=== PATIENT | female | born 1995 | race Caucasian/White ===

== ENCOUNTER 2020-03-24 00:42 | Outpatient (CLI) | payer OTHER, SELFPAY ==
[2020-03-24 19:14] LABS: SARS-CoV-2 RNA PCR Negative
== END 2020-03-24 00:43 | disposition home or self-care (01) ==
LOC: ANHCOVIDDT 00:42
PROVIDERS: PCP Family Medicine; Visit Provider Student in an Organized Health Care Education/Training Program
DX: Z01.818 Encounter for other preprocedural examination (principal); Z20.828 Contact with and (suspected) exposure to other viral communicable diseases
CPT/HCPCS: 87635; C9803; U0003

== ENCOUNTER 2020-03-28 00:47 | Day surgery (SDC) | payer OTHER, SELFPAY ==
[2020-03-20 12:38] VITALS: BMI 18.7
--- NOTE | 2020-03-27 16:11 | PM.IMHP ---
H&P: HPI History of Present Illness Date/Time: 03/27/20 16:11 Patient is a 24 year old woman with a long history of severe vaginal discomfort, precluding the inability to insert tampons or engage in sexual activity. She has been unable to tolerate speculum exams in the office and has declined bimanual exams due to the discomfort. 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 After discussion, the patient was offered an examination under anesthesia to fully evaluate the vulvar and vaginal area as well as surgical revision of hymen. Decision was made to proceed with procedure. Patient reports feeling well today without complaints. Chief complaint: Hymenal Remnants Narrative: Kalli Arnold is a 24 year old female Review of Systems Review of Systems: All systems reviewed & are unremarkable except as noted in HPI and below Constitutional: Constitutional: Reports as per HPI, Reports no additional constitutional complaints, Denies chills, Denies fever(s), Denies headache(s) and Denies night sweats Eyes: Eyes: Reports as per HPI and Reports no additional eye complaints ENT: Reports system reviewed and no additional complaints, except as documented, Reports as per HPI, Reports Normal hearing present and Denies headache(s) Cardiovascular: Cardiovascular: Reports as per HPI, Reports no additional cardiovascular complaints, Denies chest pain and Denies dyspnea Respiratory: Respiratory: Reports as per HPI, Reports no additional respiratory complaints, Denies cough and Denies dyspnea Gastrointestinal: Gastrointestinal: Reports as per HPI, Reports no additional gastrointestinal complaints, Denies abdominal pain, Denies change in bowel habits, Denies change in stool character, Denies nausea and Denies vomiting Genitourinary: Genitourinary: Reports no additional female genitourinary complaints, Reports as per HPI, Denies abnormal vaginal bleeding, Denies genital lesions, Denies hot flashes, Denies dyspareunia, Denies pelvic pain, Denies sexual dysfunction, Denies urinary incontinence, Denies vaginal discharge, Denies vaginal dryness and Denies vaginal odor Musculoskeletal: Musculoskeletal: Reports no additional musculoskeletal complaints and Reports as per HPI Integumentary/Breasts: Skin/Breast: Reports system reviewed and no additional complaints, except as docu, Reports as per HPI, Denies breast pain and Denies nipple discharge Neurologic: Reports system reviewed and no additional complaints, except as documented, Reports as per HPI, Reports Normal hearing present and Denies headache(s) Psychiatric: Psychiatric: Reports no additional psychiatric complaints, Reports as per HPI, Denies anxiety and Denies depression Endocrine: Endocrine: Reports no additional endocrine complaints and Reports as per HPI Hematologic/Lymphatic: Hematologic/Lymphatic: Reports no additional hematologic/lymphatic complaints and Reports as per HPI Allergic/Immunologic: Allergic/Immunologic: Reports no additional allergic/immunologic complaints and Reports as per HPI PMFSH Past Medical History Medical History Acid reflux ADHD Anxiety Asthma Eczema H/O borderline personality disorder Migraine Vocal cord dysfunction Surgical History Surgical History History of colonoscopy History of endoscopy History of tonsillectomy and adenoidectomy Family History Family History Grandparent Diabetes mellitus Mother Family history of hypercholesterolemia Other Asthma Family history of allergic disorder Family history of eczema Social History Social History Smoking status: Never smoker Second hand tobacco smoke e
[2020-03-28 10:35] VITALS: BP 107/78; PULSE 120; RESP 20; TEMP 37; O2SAT 100
--- NOTE | 2020-03-28 11:12 | WPDANESEPPF ---
Anes - Initial Pre Proc Eval Procedure: Operation Date: 03/28/20 13:00 Proposed Procedures p Pelvic Exam Under Anesthesia And Excision of Hymen,With Pap Smear - Rose Mendez MD Date/Time: 03/28/20 11:12 Surgeon: Rose Mendez MD Pre Op Diagnosis: Hymenal Remnants Patient Data Age: 24 Gender: F Height: 5 ft 3 in Weight: 50.4 kg Last Vital Signs Temp 98.6 F 03/28/20 10:35 Pulse 120 H 03/28/20 10:35 Resp 20 03/28/20 10:35 BP 107/78 03/28/20 10:35 Pulse Ox 100 03/28/20 10:35 Allergies Allergy/AdvReac Type Severity Reaction Status Date / Time No Known Allergies Allergy Verified 03/28/20 10:41 Home Medications Medication Instructions Recorded Confirmed Type albuterol sulfate 2.5 mg INHALATION Q4H PRN 04/11/19 03/28/20 History albuterol sulfate [ProAir HFA] 1 puff INHALATION QID PRN 04/11/19 03/28/20 History amitriptyline 75 mg PO HS 04/11/19 03/28/20 History benzonatate 200 mg PO BID PRN 04/11/19 03/28/20 History calcium polycarbophil [FiberCon] 1,250 mg PO HS 04/11/19 03/28/20 History ipratropium-albuterol [Combivent 1 puff INHALATION Q4H PRN 04/11/19 03/28/20 History Respimat] ketorolac 10 mg PO Q6H PRN 04/11/19 03/28/20 History lansoprazole 30 mg PO DAILY PRN 04/11/19 03/28/20 History rabeprazole 20 mg PO HS 04/11/19 03/28/20 History rizatriptan 10 mg PO ONCE PRN 04/11/19 03/28/20 History topiramate 100 mg PO HS 04/11/19 03/28/20 History galcanezumab-gnlm [Emgality Pen] 120 mg SUBCUT MONTHLY 04/15/19 03/28/20 History docusate sodium 100 mg capsule 100 mg PO HS 05/17/19 03/28/20 History polyethylene glycol 3350 17 17 gm PO DAILY PRN 05/17/19 03/28/20 History gram/dose oral powder drospirenone (contraceptive) 4 mg 4 mg PO DAILY 24 Days #3 packet 08/22/19 03/28/20 Rx (28) tablet aripiprazole 2 mg PO HS 03/20/20 03/28/20 History beclomethasone dipropionate [Qvar] 160 mcg INHALATION BID 03/20/20 03/28/20 History dextroamphetamine-amphetamine 5 mg PO BID 03/20/20 03/28/20 History multivit with min-folic acid 2 tablet PO DAILY 03/20/20 03/28/20 History [Adult Multivitamin Gummies] sertraline 150 mg PO HS 03/20/20 03/28/20 History Patient hx anesthesia problems: none Family hx anesthesia problems: none [facility] Past Medical History Medical History Acid reflux ADHD Anxiety Asthma Eczema H/O borderline personality disorder Migraine Vocal cord dysfunction Surgical History Surgical History History of colonoscopy History of endoscopy History of tonsillectomy and adenoidectomy Family History Family History Grandparent Diabetes mellitus Mother Family history of hypercholesterolemia Other Asthma Family history of allergic disorder Family history of eczema Social History Social History Smoking status: Never smoker Second hand tobacco smoke exposure: No Alcohol intake: current Alcohol use details: 1 GLASS WHISKEY/MONTH Substance use: former Substance use type: marijuana Other substance usage details: CBD OIL Last use: 04/2019 Living arrangements: with roommate(s) Spiritual care concerns: No Anes - Eval Final PreProcedure Day of Procedure 03/28/20 11:12 Patient weight: normal Heart: regular rate and rhythm Lungs: clear to auscultation Airway: Mallampati scale class II Neurological: alert and oriented Last oral intake: >/= 8 hours ASA classification: II Emergent: no Anesthetic plan: proceed Anesthesia type and monitoring: general GIVS and standard monitoring Informed Consent: The patient's anesthetic plan and its attendant risks and benefits were discussed with the patient/family/POA. Questions were solicited and answers provided to the satisfaction of the patient/family/POA.
[2020-03-28] MEDS: ACETAMINOPHEN 500 MG TABLET 1000 MG PO (11:15)
[2020-03-28] MEDS: LACTATED RINGERS 1,000 ML 30 ML IV CONT ×2 (11:20→14:19)
--- NOTE | 2020-03-28 12:57 | WPDHPUPDATE1 ---
History and Physical Update Update Date/Time: 03/28/20 12:57 History and Physical has been reviewed, including an updated exam of the patient. There are NO changes in the patient's condition. Risks, benefits, and alternatives have been discussed and questions answered. Patient agrees to proceed with procedure.
[2020-03-28] MEDS: KETOROLAC 30 MG/ML VIAL (*BKC) 15 MG IV PUSH (13:54)
[2020-03-28 14:06] VITALS: BP 83/41; PULSE 81; RESP 8; O2SAT 100
--- NOTE | 2020-03-28 14:08 | P.OP_ITS ---
Procedure Note - Detailed Date of procedure: 03/28/20 Pre-op diagnosis: Hymenal Remnants Post-op diagnosis: same Procedure performed: Examination under anesthesia, pap smear, hymenectomy Description of procedure: The patient was taken to the operating room where she self transferred to the operating room table. Patient was placed in dorsal supine position. Anesthesia was administered and found be adequate. Patient was repositioned in dorsal lithotomy position with the use of Kali stirrups. An examination anesthesia was performed. 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 A pediatric speculum was inserted into the vagina. During insertion of the speculum, the hymen noticeably stretched causing a small inferior laceration with minimal bleeding. The cervix was well visualized and a Pap smear specimen was collected. The patient was then prepped and draped in usual sterile fashion. With the use of a #15 blade scalpel, the inferior portion of the hymenal remnant was completely excised in a semi-lunar fashion. The mucosal edges were reapproximated with single interrupted sutures using 4-0 Vicryl. Excellent hemostasis was noted. The portion of the excised remnant was handed off the field to be sent to pathology for analysis. The superior portion of the remaining hymenal remnant containing the 2nd cribiform opening to the vagina (which created a small loop) was identified. A red rubber catheter was inserted into the bladder. 75 cc of yellow urine was obtained. The catheter was left in place to ensure no damage to the urethra. A large cotton swab was placed through the looped portion of the hymenal remnant. The intervening segment of tissue was excised with the scalpel. The edges of this portion of the hymen were also reapproximated with 4-0 Vicryl in a short running fashion. Excellent hemostasis was noted. The procedure was deemed complete. 6 cc of 1% lidocaine was injected beneath all excision sites for enhanced postoperative pain control. The patient was cleansed and dried. A small amount of lidocaine jelly as well as bacitracin ointment was applied to the area. The patient was taken out dorsal lithotomy position and awakened from anesthesia without diffi culty. She was transferred to recovery room in stable condition. All sponge, lap, and instrument counts were correct at the end of the procedure. Anesthesia: MAC Surgeon: Rose Mendez MD Estimated blood loss (mL): 15 IV fluids (mL): 900 Urine output (mL): 75 Drains: No Packing: No Pathology: yes (hymenal remnants) Complications: No immediate complications Condition: stable Disposition: floor
[2020-03-28 14:25] VITALS: BP 110/68; PULSE 78; RESP 12; O2SAT 100
[2020-03-28 14:55] VITALS: BP 105/66; PULSE 78; RESP 16; O2SAT 100
[2020-03-28 15:24] VITALS: BP 96/68; PULSE 88; RESP 16
== END 2020-03-28 15:30 | disposition home or self-care (01) ==
PROVIDERS: PCP Family Medicine; Visit Provider Student in an Organized Health Care Education/Training Program
PROC: 0U5B8ZZ Destruction of Endometrium, Via Natural or Artificial Opening Endoscopic (ICD-10-PCS; CPT 58563; principal; 2020-03-28 13:00)
DX: Q52.4 Other congenital malformations of vagina (principal); F90.9 Attention-deficit hyperactivity disorder, unspecified type; K21.9 Gastro-esophageal reflux disease without esophagitis; F41.9 Anxiety disorder, unspecified; J45.909 Unspecified asthma, uncomplicated; L30.9 Dermatitis, unspecified
CPT/HCPCS: 56700; 88305; 88342; A9270; J1885; J2250; J2370; J2405; J2704; J3010; J7120

== ENCOUNTER 2020-07-10 08:21 | Outpatient (CLI) | payer OTHER, SELFPAY ==
--- NOTE | 2020-07-10 12:12 | WPDNEUROLOGY ---
Neurology EEG Report General Information Date of Study: 07/10/20 TEST eeg DIAGNOSIS headaches possibly migraines CONDITION OF RECORDING awake drowsy and sleep EEG NUMBER [id number] CLINICAL HISTORY patient reported for about 6 months to a year she is having episodes of losing time, becomes confused and forgetting at work. EEG DESCRIPTION Basic resting occipital frequency consists of large amount of well-organized low to medium voltage 8 to 10 hertz per second alpha admixed with low-voltage 15 to 18 hertz per second beta. Bilateral symmetrical sleep activity seen during sleep with symmetrical sleep spindles.hyperventilation not done. Non paroxysmal. Nonfocal. Nonlateralizing. Photic stimulation produced normal driving IMPRESSION normal record
== END 2020-07-10 08:22 | disposition home or self-care (01) ==
PROVIDERS: PCP Family Medicine; Visit Provider Psychiatry & Neurology Neurology
DX: G43.909 Migraine, unspecified, not intractable, without status migrainosus (principal)
CPT/HCPCS: 95816

== ENCOUNTER 2021-02-27 09:56 | Emergency (ER) | payer OTHER, SELFPAY ==
--- NOTE | ~2021-02-27 | CT_ITS ---
EXAMINATION: CT abdomen pelvis wo con DATE: 02/27/2021 11:02 INDICATION: Back pain, painful urination TECHNIQUE: Computed tomography (CT) of the abdomen and pelvis was performed without intravenous contr ast. The dose-length product (DLP) was 195.82 mGy-cm. Automated exposure control and iterative recons truction technique were employed. COMPARISON: None FINDINGS: The lung bases are clear. The heart size is normal. The liver, spleen, pancreas, gallbladde r, and adrenal glands are normal. There are punctate nonobstructing bilateral kidney stones. No stone s are present in the ureters or bladder. There is no hydronephrosis or hydroureter. No pathologically enlarged abdominal or pelvic lymph nodes are identified. There is no free intraperitoneal gas or tolu dence of bowel obstruction. A moderate volume of colonic stool is present. The appendix is normal. IMPRESSION: 1. Bilateral nonobstructing nephrolithiasis. Reviewed, dictated and finalized at location B. 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
--- NOTE | 2021-02-27 10:10 | ED.FEMALEGU ---
HPI - Female Genitourinary General Chief complaint: Urogenital-Female <Rebekah Harley PA-C - Last Filed: 02/27/21 11:40> Stated complaint: blood in urine, back pain <KATHE Diaz Last Filed: 02/27/21 11:40> Time Seen by Provider: 02/27/21 09:59 <KATHE Diaz Last Filed: 02/27/21 11:40> Source: patient <Rebekah Harley PA-C - Last Filed: 02/27/21 11:40> Mode of arrival: ambulatory <KATHE Diaz Last Filed: 02/27/21 11:40> Limitations: no limitations <Rebekah Harley PA-C - Last Filed: 02/27/21 11:40> History of Present Illness HPI Narrative: This is a 25-year-old female that presents to the emergency department for hematuria noted today. Reports she started to have some left-sided flank pain yesterday. The pain has been constant in nature. Intermittently is more sharp. Does also report some nausea and lower abdominal discomfort. Denies fever, vomiting, or dysuria. <Rebekah Harley PA-C - Last Filed: 02/27/21 11:40> Related Data Home medications: Home Medications Medication Instructions Recorded Confirmed Combivent Respimat 1 puff INHALATION Q4H PRN 04/11/19 02/26/21 albuterol sulfate 2.5 mg INHALATION Q4H PRN 04/11/19 02/26/21 albuterol sulfate [ProAir HFA] 1 puff INHALATION QID PRN 04/11/19 02/26/21 lansoprazole 30 mg PO DAILY PRN 04/11/19 02/26/21 rabeprazole 20 mg PO HS 04/11/19 02/26/21 rizatriptan 10 mg PO ONCE PRN 04/11/19 02/26/21 polyethylene glycol 3350 17 17 gm PO DAILY PRN 05/17/19 02/26/21 gram/dose oral powder Adult Multivitamin Gummies 2 tablet PO DAILY 03/20/20 02/26/21 beclomethasone dipropionate 160 mcg INHALATION BID 03/20/20 02/26/21 amitriptyline 75 mg tablet 75 mg PO DAILY tablet 02/05/21 02/26/21 cariprazine 1.5 mg capsule 1.5 mg PO DAILY 02/05/21 02/26/21 cholecalciferol (vitamin D3) 50 50 mcg PO DAILY cap 02/26/21 02/26/21 mcg (2,000 unit) capsule sertraline 100 mg tablet 200 mg PO DAILY tablet 02/26/21 02/26/21 <Rebekah Harley PA-C - Last Filed: 02/27/21 11:40> Allergies/Adverse reactions: Allergies Allergy/AdvReac Type Severity Reaction Status Date / Time No Known Allergies Allergy Verified 02/26/21 16:04 <Rebekah Harley PA-C - Last Filed: 02/27/21 11:40> Review of Systems Review of Systems: CONSTITUTIONAL: Denies fever GASTROINTESTINAL: Reports abdominal pain, nausea. Denies vomiting, or diarrhea. GENITOURINARY: Reports hematuria. 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
[2021-02-27 10:31] LABS: Basophils Percent Auto 0.4 % (0.2-1.2); Eosinophils Absolute Auto 0.1 K/mm3 (0-0.3); Eosinophils Percent Auto 0.9 % (0-4.4); Hematocrit 37.8 % (37.0-47.0); Hemoglobin 12.8 g/dL (12.0-15.0); Immature Granulocyte Absolute 0.03 K/mm3 (0.00-0.031); Immature Granulocyte Percent A 0.3 % (0-0.5); Lymphocytes Absolute Auto 1.78 K/mm3 (0.9-3.2); Lymphocytes Percent Auto 19.9 % (18.3-44.2); Mean Corpuscular HGB Conc 33.9 g/dl (32-36); Mean Corpuscular Hemoglobin 29.5 pg (26-34); Mean Corpuscular Volume 87.1 fl (80-100); Mean Platelet Volume 8.7 fl (7.4-10.4); Monocytes Absolute Auto 0.9 K/mm3 (0.1-0.6); Monocytes Percent Auto 9.9 % (2.6-8.5); Neutrophils Absolute Auto 6.1 K/mm3 (1.3-6.7); Neutrophils Percent Auto 68.6 % (45.5-73.1); Platelet Count Result 251 k/mm3 (150-375); Red Blood Count 4.34 M/mm3 (4.2-5.4)
[2021-02-27 10:35] VITALS: BP 103/76; PULSE 93; RESP 16; TEMP 36.6; O2SAT 100
[2021-02-27 10:42] LABS: Alanine Aminotransferase 15 U/L (4-35); Alkaline Phosphatase 74 U/L (38-126); Anion Gap 12 mmol/L (8-16); Aspartate Amino Transferase 27 U/L (14-36); Bilirubin,Total 0.4 mg/dL (0.2-1.3); Blood Urea Nitrogen 17 mg/dL (7-17); Calcium 9.4 mg/dL (8.4-10.2); Carbon Dioxide 23 mmol/L (22-30); Chloride 104 mmol/L (98-107); Estimated CRCL calculation 74 ml/min; Estimated Glomerular Filt Rate > 60; Glucose 87 mg/dL (65-110); Potassium 4.3 mmol/L (3.4-5.0); Sodium 139 mmol/L (137-145)
[2021-02-27 10:54] LABS: Add Urine Microscopic? YES; Appearance Urine Cloudy (Clear); Bilirubin Urine Negative (Negative); Blood Urine 3+ (Negative); Color Urine Red (Yellow); Glucose Urine UA Negative (Negative); Ketones Urine Negative (Negative); Leukocyte Esterase Ur 3+ LEU/UL (Negative); Mucus Urine Rare /lpf; Nitrate Urine Negative (Negative); Protein Urine 2+ mg/dL (Negative); RBC Urine >75 /hpf (0-2); Specific Grav Ur 1.012 (1.001-1.035); Squamous Epithelial Cell Urine Many /hpf (Few); Urobilinogen Urine Negative mg/dL (<2.0); WBC Urine 31-50 /hpf
[2021-02-27] MEDS: SODIUM CHLORIDE 0.9% IV 1,000 ML 999 ML IV CONT (11:22)
[2021-02-27] MEDS: MORPHINE SULFATE (*CRX) 2 MG/ML INJ IV PUSH (11:23)
[2021-02-27] MEDS: ONDANSETRON INJ 4 MG/2 ML VIAL IV PUSH (11:23)
[2021-02-27 12:54] VITALS: BP 104/78; PULSE 85; RESP 16; O2SAT 100
== END 2021-02-27 12:55 | disposition home or self-care (01) ==
PROVIDERS: Physician Assistant; Emergency Provider Emergency Medicine; PCP Family Medicine
DX: N12 Tubulo-interstitial nephritis, not specified as acute or chronic (principal); K21.9 Gastro-esophageal reflux disease without esophagitis; F41.9 Anxiety disorder, unspecified; J45.909 Unspecified asthma, uncomplicated; F32.9 Major depressive disorder, single episode, unspecified
CPT/HCPCS: 36415; 74176; 80053; 81001; 81025; 85025; 87077; 87086; 87088; 96365; 96366; 96375; 99284; J0131; J2270; J2405; J7030

== ENCOUNTER 2021-03-04 06:28 | Emergency (ER) | payer OTHER, SELFPAY ==
[2021-03-04] VITALS (14 sets, daily range): BP systolic 91–123; BP diastolic 57–75; PULSE 123–133; RESP 17–25; TEMP 36.8; O2SAT 97–99
--- NOTE | 2021-03-04 06:53 | ECG_ITS ---
Measurements Intervals [place] Rate: 127 P: 36 [place]: 150 QRS: 49 QRSD: 113 T: 22 QT: 330 QTc: 480 Interpretive Statements SINUS TACHYCARDIA INTRAVENTRICULAR CONDUCTION DELAY BORDERLINE ST-T WAVE ABNORMALITY- ANTEROLAT/INF LEADS BASELINE WANDER- V3 ABNORMAL ECG Electronically Signed On 03-04-2021 8:47:41 DIRECTOR OF SAFETY AND SECURITY by Nico Clay D.O.
--- NOTE | 2021-03-04 07:19 | PC.NURSE ---
Report received from REY Vargas. Initial contact with patient. Awaiting EDP assessment. Denies needs at present.
--- NOTE | 2021-03-04 07:29 | ED.HA ---
HPI - Headache General Chief Complaint: Headache Stated Complaint: migraine h/a Time Seen by Provider: 03/04/21 07:20 History of Present Illness HPI Narrative: Patient presents with migraine headache similar to her previous migraines started last night, throbbing pain behind the eyes and left forehead, she denies any new changes compared to the previous one. Usually gets better on Toradol. And IV fluid. Patient denies any fever, chills, nausea, vomiting, chest pain, shortness of breath Related Data Home Medications Medication Instructions Recorded Confirmed Combivent Respimat 1 puff INHALATION Q4H PRN 04/11/19 02/26/21 albuterol sulfate 2.5 mg INHALATION Q4H PRN 04/11/19 02/26/21 albuterol sulfate [ProAir HFA] 1 puff INHALATION QID PRN 04/11/19 02/26/21 lansoprazole 30 mg PO DAILY PRN 04/11/19 02/26/21 rabeprazole 20 mg PO HS 04/11/19 02/26/21 rizatriptan 10 mg PO ONCE PRN 04/11/19 02/26/21 polyethylene glycol 3350 17 17 gm PO DAILY PRN 05/17/19 02/26/21 gram/dose oral powder Adult Multivitamin Gummies 2 tablet PO DAILY 03/20/20 02/26/21 beclomethasone dipropionate 160 mcg INHALATION BID 03/20/20 02/26/21 amitriptyline 75 mg tablet 75 mg PO DAILY tablet 02/05/21 02/26/21 cariprazine 1.5 mg capsule 1.5 mg PO DAILY 02/05/21 02/26/21 cholecalciferol (vitamin D3) 50 50 mcg PO DAILY cap 02/26/21 02/26/21 mcg (2,000 unit) capsule sertraline 100 mg tablet 200 mg PO DAILY tablet 02/26/21 02/26/21 Allergies Allergy/AdvReac Type Severity Reaction Status Date / Time No Known Allergies Allergy Verified 03/04/21 06:47 Review of Systems Review of Systems: CONSTITUTIONAL: Denies fever, chills, or sweats. EYES: Denies visual changes, redness, or discharge. ENT: Denies rhinorrhea, congestion, sore throat, or otalgia. CARDIOVASCULAR: Denies chest pain, palpitations, or edema. RESPIRATORY: Denies cough or dyspnea. GASTROINTESTINAL: Denies abdominal pain, nausea, vomiting, or diarrhea. GENITOURINARY: Denies dysuria or hematuria. SKIN: Denies rash or itching. MUSCULOSKELETAL: Denies back pain, joint pain, or myalgia. NEUROLOGIC: Denies headache, numbness, or weakness. PSYCHIATRIC: Denies anxiety or depression. 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 History of tonsillectomy and adenoidectomy (~2000) Family History Family History Grandparent Diabetes mellitus Mother Family history of hypercholesterolemia Other Asthma Family history of allergic disorder Family history of eczema Social History Social History Smoking status: Never smoker Second hand tobacco smoke exposure: No Alcohol intake: current Alcohol use details: 1 GLASS WHISKEY/MONTH Substance use: former Substance use type: marijuana Other substance usage details: CBD OIL Last use: 04/2019 Spiritual care concerns: No Exam Narrative: General appearance: Well-developed, well-nourished Skin: Normal color Head: Normocephalic, nontraumatic Eyes: Clear conjunctiva ENT: Oropharynx normal, ears normal, nose normal Neck: Supple, nontender Chest and respiratory: Airway patent, no respiratory distress, no accessory muscle use Heart: Regular rate/rhythm Abdomen: Soft, nontender, no organomegaly, quiet bowel sounds Vascular: Normal peripheral pulses, normal capillary refill. Musculoskeletal: Normal range of motion, nontender back Neurologic: Alert and oriented ?3, GROVE SUPERINTENDENT is normal as tested, no gross motor deficit
[2021-03-04] MEDS: SODIUM CHLORIDE 0.9% IV 1,000 ML 999 ML IV CONT (07:45)
[2021-03-04] MEDS: diphenhydrAMINE HCl INJ 50 MG/ML VIAL IV PUSH (07:46)
[2021-03-04] MEDS: METOCLOPRAMIDE HCL INJ 10 MG/2 ML VIAL IV PUSH (07:49)
[2021-03-04] MEDS: KETOROLAC 30 MG/ML VIAL (*BKC) IV PUSH (07:52)
== END 2021-03-04 08:40 | disposition home or self-care (01) ==
PROVIDERS: Emergency Provider Emergency Medicine; PCP Family Medicine
DX: G43.909 Migraine, unspecified, not intractable, without status migrainosus (principal); K21.9 Gastro-esophageal reflux disease without esophagitis; J45.909 Unspecified asthma, uncomplicated; E55.9 Vitamin D deficiency, unspecified; F41.8 Other specified anxiety disorders; R00.0 Tachycardia, unspecified; I45.9 Conduction disorder, unspecified; R94.31 Abnormal electrocardiogram [ECG] [EKG]
CPT/HCPCS: 93005; 96361; 96374; 96375; 99284; J1200; J1885; J2765; J7030

== ENCOUNTER 2022-02-25 19:38 | Outpatient (NON) | payer OTHER, SELFPAY | END 2022-02-25 19:39 | disposition home or self-care (01) | PROVIDERS: PCP Family Medicine; Visit Provider Nurse Practitioner Family | DX: M54.9 Dorsalgia, unspecified (principal) | CPT/HCPCS: 87077; 87086; 87088 ==

== ENCOUNTER 2022-03-07 09:13 | Outpatient (CLI) | payer OTHER, SELFPAY ==
[2022-03-07 09:48] LABS: Appearance Urine Slightly Cloudy (Clear); Bilirubin Urine Negative (Negative); Blood Urine Negative (Negative); Color Urine Yellow (Yellow); Glucose Urine UA Negative (Negative); Ketones Urine Negative (Negative); Leukocyte Esterase Ur 1+ LEU/UL (Negative); Nitrate Urine Negative (Negative); Protein Urine Negative (Negative); Specific Grav Ur >= 1.030 (1.001-1.035); Urobilinogen Urine 0.2 mg/dL (<2.0)
[2022-03-07 09:55] LABS: Bacteria Urine Trace /hpf; Mucus Urine Rare /lpf; RBC Urine 0-2 /hpf (0-2); Squamous Epithelial Cell Urine Few /hpf (Few); WBC Urine 0-3 /hpf
[2022-03-07 10:15] LABS: Add Urine Microscopic? YES
== END 2022-03-07 09:14 | disposition home or self-care (01) ==
LOC: ANHLAB 09:15
PROVIDERS: PCP Family Medicine; Visit Provider Nurse Practitioner Family
DX: R30.0 Dysuria (principal)
CPT/HCPCS: 81001

== ENCOUNTER 2022-07-10 04:10 | Emergency (ER) | payer OTHER, SELFPAY ==
--- NOTE | ~2022-07-10 | XR_ITS ---
Clinical Indication: Chest pain PA and lateral views of the chest: Comparison: 06/02/2013 Findings: Probable very subtle asymmetric haziness at the right upper lobe. Left lung clear. No pleur al effusion or pneumothorax.. Cardiomediastinal silhouette is within normal limits. Bones and soft t issues are unremarkable. Impression: Very subtle asymmetric haziness the right upper lobe. Subtle right upper lobe pneumonia suspected. Reviewed, dictated and finalized at location M. Impression: Very subtle asymmetric haziness the right upper lobe. Subtle right upper lobe p neumonia suspected.
[2022-07-10 04:13] VITALS: BP 102/83; PULSE 114; RESP 18; TEMP 36.7; O2SAT 98
--- NOTE | 2022-07-10 04:29 | ECG_ITS ---
Measurements Intervals [place] Rate: 96 P: 6 [place]: 138 QRS: 52 QRSD: 99 T: 16 QT: 345 QTc: 437 Interpretive Statements SINUS RHYTHM NONSPECIFIC T-WAVE ABNORMALITY- INFERIOR LEADS BORDERLINE ECG COMPARED TO ECG 03/04/2021 07:00:28 SINUS RHYTHM NOW PRESENT Electronically Signed On 07-10-2022 6:28:28 CDT by Nico Clay D.O.
--- NOTE | 2022-07-10 04:29 | ED.FEVER ---
HPI - Fever General Chief Complaint: Fever Stated Complaint: fever, chest pressure, body aches Time Seen by Provider: 07/10/22 04:20 History of Present Illness HPI Narrative: This is a 27-year-old female with past medical history of depression and migraines, who presents to the emergency department complaining of diffuse myalgias and chest pain. Patient states her symptoms began 2 days ago. She states she feels as if all my bones have been pulled apart and put back together wrong. She also complains of sore like chest pain. She is concerned that she may have a pneumothorax. The patient states she was seen in an outside hospital approximately 12 hours ago. She tested negative for COVID and flu. She was given Tylenol with codeine and discharged. Related Data Home Medications Medication Instructions Recorded Confirmed albuterol sulfate 2.5 mg/3 mL 2.5 mg inhalation Q4H PRN 04/11/19 02/25/22 (0.083 %) solution for nebulization Shortness Of Breath Or Wheezing albuterol sulfate 90 mcg/actuation 1 puff inhalation QID PRN 04/11/19 02/25/22 aerosol inhaler (ProAir HFA) Shortness Of Breath Or Wheezing ipratropium 20 mcg-albuterol 100 1 puff inhalation Q4H PRN Wheezing 04/11/19 02/25/22 mcg/actuation mist for inhalation (Combivent Respimat) lansoprazole 30 mg capsule,delayed 30 mg PO DAILY PRN Indigestion 04/11/19 02/25/22 release rabeprazole 20 mg tablet,delayed 20 mg PO HS 04/11/19 02/25/22 release rizatriptan 10 mg disintegrating 10 mg PO ONCE PRN Migraine Headache 04/11/19 02/25/22 tablet polyethylene glycol 3350 17 17 gm PO DAILY PRN Constipation 05/17/19 02/25/22 gram/dose oral powder (Miralax) beclomethasone dipropionate 80 160 mcg inhalation BID 03/20/20 02/25/22 mcg/actuation aerosol inhaler multivitamin with minerals-folic 2 tablet PO DAILY 03/20/20 02/25/22 acid 200 mcg chewable tablet (Adult Multivitamin Gummies) armodafinil 50 mg tablet 200 mg PO QAM 02/25/22 02/25/22 sertraline 200 mg capsule 200 mg PO DAILY 06/17/22 Allergies Allergy/AdvReac Type Severity Reaction Status Date / Time sulfamethoxazole AdvReac Severe Migraine Verified 06/17/22 08:58 [From Bactrim] trimethoprim [From Bactrim] AdvReac Severe Migraine Verified 06/17/22 08:58 Review of Systems Review of Systems: CONSTITUTIONAL: Fevers and chills denies sweats. EYES: Denies visual changes, redness, or discharge. ENT: rhinorrhea, congestion, Denies sore throat, or otalgia. CARDIOVASCULAR: chest pain Denies palpitations, or edema. RESPIRATORY: cough Denies dyspnea. GASTROINTESTINAL: Denies abdominal pain, nausea, vomiting, or diarrhea. GENITOURINARY: Denies dysuria or hematuria. SKIN: Denies rash or itching. MUSCULOSKELETAL: Diffuse myalgias denies back pain, joint pain NEUROLOGIC: Denies headache, numbness, dizziness, or weakness. PSYCHIATRIC: Denies anxiety or depression. 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
[2022-07-10] MEDS: ACETAMINOPHEN 500 MG TABLET 1000 MG PO (04:41)
[2022-07-10 05:26] VITALS: BP 118/69; PULSE 69; RESP 18; TEMP 36.6; O2SAT 99
== END 2022-07-10 05:39 | disposition home or self-care (01) ==
LOC: ANHED 05:13
PROVIDERS: Emergency Provider Preventive Medicine Aerospace Medicine; PCP Nurse Practitioner Family
DX: M79.10 Myalgia, unspecified site (principal); M94.0 Chondrocostal junction syndrome [Tietze]; F41.8 Other specified anxiety disorders; K21.9 Gastro-esophageal reflux disease without esophagitis; G47.30 Sleep apnea, unspecified; E55.9 Vitamin D deficiency, unspecified; Z79.51 Long term (current) use of inhaled steroids
CPT/HCPCS: 71046; 93005; 99283; A9270

== ENCOUNTER 2023-10-01 15:19 | Emergency (ER) | payer OTHER, SELFPAY ==
--- NOTE | ~2023-10-01 | XR_ITS ---
EXAMINATION: XR chest 2V 10/01/2023 16:05 INDICATION: Cough. Upper respiratory infection. PROCEDURE: 2 view chest COMPARISON: 07/10/2022 FINDINGS: The lungs are clear. The cardiomediastinal silhouette is within normal limits. There are no pleural effusions. There is no pneumothorax suspected. IMPRESSION: 1: NO ACUTE CARDIOPULMONARY DISEASE. Reviewed, dictated and finalized at location B.
[2023-10-01 15:21] VITALS: BP 122/86; PULSE 120; RESP 20; TEMP 36.6; O2SAT 94
--- NOTE | 2023-10-01 15:24 | ED.URI ---
HPI - URI/Sore Throat General Chief Complaint: Upper Respiratory Infection <Dacia Dye PA-C - Last Filed: 10/01/23 15:33> Stated Complaint: cough <KATHE Moore Last Filed: 10/01/23 15:33> Time Seen by Provider: 10/01/23 15:25 <KATHE Moore Last Filed: 10/01/23 15:33> Focused HPI: Patient is a 28 y/o female, with PMH of asthma, pleurisy, and spontaneous PTX, who presents to the ED with c/o URI sx's. Patient reports having a mildly productive cough for the past 2 weeks. Reports clear thick muucous. Has finished a round of prednisone and azithromycin w/o relief. Also reports intermittent chest pain since Thursday, occurs at rest and with coughing, SOB - worse with exertion and laying. Has been using her inhalers at home w/o improvement. States today her lips were turning blue which prompted her to come to the ED. Denies fevers, wheezing, lower ext swelling, hx blood clots, sick contacts. GENERAL: Mildly ill-appearing, well-nourished, and in no acute distress. HEAD: Normocephalic, atraumatic. CHEST: Clear to auscultation. ?No respiratory distress. Coarse breath sounds, no significant focal findings. HEART: Tachycardic with regular rhythm.? MSK: No lower extremity swelling. NEURO: ?Alert and oriented x3. Patient screened in triage and initial orders placed.? ?Additional care and disposition to be based upon?diagnostic testing and treatment. <Dacia Dye PA-C - Last Filed: 10/01/23 15:33> Focused HPI: Patient is a 28 y/o female, with PMH of asthma, pleurisy, and spontaneous PTX, who presents to the ED with c/o URI sx's. Patient reports having a mildly productive cough for the past 2 weeks. Reports clear thick mucous. Has finished a round of prednisone and azithromycin w/o relief. Also reports intermittent chest pain since Thursday, occurs at rest and with coughing, SOB - worse with exertion and laying. Has been using her inhalers at home w/o improvement. States today her lips were turning blue which prompted her to come to the ED. Denies fevers, wheezing, lower ext swelling, hx blood clots, sick contacts. GENERAL: Mildly ill-appearing, well-nourished, and in no acute distress. HEAD: Normocephalic, atraumatic. CHEST: Clear to auscultation. ?No respiratory distress. Coarse breath sounds, no significant focal findings. HEART: Tachycardic with regular rhythm.? MSK: No lower extremity swelling. NEURO: ?Alert and oriented x3. Patient screened in triage and initial orders placed.? ?Additional care and disposition to be based upon?diagnostic testing and treatment. <Rebekah Harley PA-C - Last Filed: 10/01/23 19:33> Source: patient <KATHE Moore Last Filed: 10/01/23 15:33> Mode of arrival: ambulatory <Dacia Dye PA-C - Last Filed: 10/01/23 15:33> Limitations: no limitations <KATHE Moore Last Filed: 10/01/23 15:33> Related Data Home Medications: Home Medications Medication Instructions Recorded Confirmed albuterol sulfate 2.5 mg/3 mL 2.5 mg inhalation Q4H PRN 04/11/19 02/25/22 (0.083 %) solution for nebulization Shortness Of Breath Or Wheezing albuterol sulfate 90 mcg/actuation 1 puff inhalation QID PRN 04/11/19 02/25/22 aerosol inhaler (ProAir HFA) Shortness Of Breath Or Wheezing ipratropium 20 mcg-albuterol 100 1 puff inhalation Q4H PRN Wheezing 04/11/19 02/25/22 mcg/actuation mist for inhalation (Combivent Respimat) beclomethasone dipropionate 80 160 mcg inhalation BID 03/20/20 02/25/22 mcg/actuation aerosol inhaler multivitamin with minerals-folic 2 tablet PO DAILY 03/20/20 02/25/22 acid 200 mcg chewable tablet (Adult Multivitamin Gummies) armodafinil 50 mg tablet 200 mg PO QAM 02/25/22 02/25/22 sertraline 200 mg capsule 200 mg PO DAILY 06/17/22 omeprazole 20 mg capsule,delayed 20 mg PO DAILY 07/29/23 release psyllium seed (sugar) oral powder 1 tbsp PO DAILY 07/29/23 (Me
--- NOTE | 2023-10-01 15:25 | ECG_ITS ---
Test Date: 2023-10-01 15:28:47 Measurements Intervals [place] Rate: 122 P: 51 GA: 145 QRS: 47 QRSD: 94 T: 21 QT: 300 QTc: 428 Interpretive Statements SINUS TACHYCARDIA OTHERWISE NORMAL ELECTROCARDIOGRAM No previous ECG available for comparison Electronically Signed On 10-02-2023 07:01:15 CDT by Marcos Morrell M.D.
[2023-10-01 15:47] LABS: Hematocrit 42.2 % (37.0-47.0); Hemoglobin 14.5 g/dL (12.0-15.0); Mean Corpuscular HGB Conc 34.4 g/dl (32-36); Mean Corpuscular Hemoglobin 29.3 pg (26-34); Mean Corpuscular Volume 85.3 fl (80-100); Mean Platelet Volume 8.4 fl (7.4-10.4); Platelet Count Result 367 k/mm3 (150-375); Red Blood Count 4.95 M/mm3 (4.2-5.4); Red Cell Distribution Width 12.9 % (11.5-14.5); White Blood Count 13.9 K/mm3 (4.5-10.0)
[2023-10-01 15:57] LABS: Alanine Aminotransferase 18 U/L (6-35); Albumin Level 4.9 g/dL (3.5-5.1); Alkaline Phosphatase 92 U/L (38-126); Anion Gap 12 mmol/L (4-12); Aspartate Amino Transferase 22 U/L (14-36); Bilirubin,Total 0.5 mg/dL (0.2-1.3); Blood Urea Nitrogen 21 mg/dL (7-17); Calcium 9.3 mg/dL (8.4-10.2); Carbon Dioxide 21 mmol/L (22-30); Chloride 104 mmol/L (98-107); Estimated CRCL calculation 62 ml/min; Estimated Glomerular Filt Rate > 60; Glucose 86 mg/dL (65-110); Potassium 3.5 mmol/L (3.4-5.0); Sodium 137 mmol/L (137-145)
[2023-10-01 15:59] LABS: INR 1.1
[2023-10-01 16:00] LABS: Partial Thromboplastin Time 28.5 Seconds (22.3-36.8)
[2023-10-01 16:04] LABS: D Dimer 0.29 ug/mL (<0.48)
[2023-10-01 16:08] LABS: Troponin I < 0.012 ng/mL (0.000-0.034)
[2023-10-01 16:09] LABS: Lymphocytes Absolute Manual 5.83 K/mm3 (1.1-4.5); Lymphocytes Percent Manual 42 % (18-44); Neutrophils Percent Manual 46 % (46-73); Total Cells Counted 100
[2023-10-01 16:10] LABS: Eosinophils Absolute Manual 0.13 K/mm3 (0.02-0.50); Eosinophils Percent Manual 1 % (0-4); Metamyelocytes Percent 2 %; Monocytes Absolute Manual 1.25 K/mm3 (0.1-0.90); Monocytes Percent Manual 9 % (3-9); Platelet Estimate Adequate (Adequate); Schistocytes None Seen; Smudge Cells FEW
[2023-10-01 16:22] LABS: Influenza A QL RT-PCR Negative (Negative); Influenza B QL RT-PCR Negative (Negative); RSV RNA, RT-PCR Negative (Negative); SARS-CoV-2 RNA PCR Negative (Negative)
--- NOTE | 2023-10-01 16:40 | ECG_ITS ---
Test Date: 2023-10-01 16:40:27 Measurements Intervals [place] Rate: 116 P: 32 [place]: 142 QRS: 35 QRSD: 95 T: 31 QT: 302 QTc: 421 Interpretive Statements SINUS TACHYCARDIA NONSPECIFIC T-WAVE ABNORMALITY ABNORMAL RHYTHM ECG Compared to ECG 10/01/2023 15:28:47 T-wave abnormality now present Electronically Signed On 10-03-2023 15:41:01 CDT by Hernan Prieto M.D.
[2023-10-01 16:47] VITALS: BP 103/61; PULSE 115; RESP 20; TEMP 36.6; O2SAT 99
--- NOTE | 2023-10-01 17:25 | PC.NURSE ---
Pt was moved from ED17 to ED22 for secured entrance monitor, pt initial HR at triage was 120.
[2023-10-01] MEDS: IPRATROPIUM 0.5 MG/ALBUTEROL SULFATE 2.5 MG AMPUL.NEB 3 ML INHALATION (17:46)
[2023-10-01 17:47] VITALS: PULSE 107; RESP 17
[2023-10-01 18:03] VITALS: PULSE 112; RESP 14
[2023-10-01] MEDS: ACETAMINOPHEN 500 MG TABLET 1000 MG PO (18:06)
[2023-10-01] MEDS: SODIUM CHLORIDE 0.9% IV 1,000 ML 999 ML IV CONT (18:07)
[2023-10-01 19:33] VITALS: O2SAT 99
[2023-10-01 19:34] VITALS: BP 127/77; PULSE 77; RESP 16; O2SAT 99
== END 2023-10-01 19:35 | disposition home or self-care (01) ==
PROVIDERS: Physician Assistant; Emergency Provider Physician Assistant
DX: J06.9 Acute upper respiratory infection, unspecified (principal); Z20.822 Contact with and (suspected) exposure to COVID-19; J45.909 Unspecified asthma, uncomplicated; E55.9 Vitamin D deficiency, unspecified; G47.30 Sleep apnea, unspecified; K21.9 Gastro-esophageal reflux disease without esophagitis; F41.8 Other specified anxiety disorders; Z87.442 Personal history of urinary calculi; Z79.899 Other long term (current) drug therapy; R00.0 Tachycardia, unspecified
CPT/HCPCS: 36415; 71046; 80053; 84484; 85025; 85380; 85610; 85730; 87637; 93005; 94640; 96360; 99284; A9270; J7030

== ENCOUNTER 2023-11-24 14:59 | Outpatient (CLI) | payer OTHER, SELFPAY ==
--- NOTE | ~2023-11-24 | MR_ITS ---
EXAMINATION: MR brain/brain stem wo con DATE: 11/24/2023 15:53 INDICATION: Left perihippocampal cyst. Migraine headache. TECHNIQUE: Magnetic resonance imaging (MRI) of the brain and brainstem was performed without intraven ous contrast. COMPARISON: Head CT 02/09/2013 FINDINGS: There is no intracranial hemorrhage, acute infarction, or abnormal intracranial mass lesion . The ventricles are normal in size. The paranasal sinuses are clear. The orbits are normal. The mast oid air cells are normal. IMPRESSION: 1. Normal brain. Interval resolution of the left perihippocampal cyst. Reviewed, dictated and finalized at location A.
== END 2023-11-24 15:00 ==
LOC: GOSHIMG 15:00
PROVIDERS: PCP Student in an Organized Health Care Education/Training Program; Visit Provider Student in an Organized Health Care Education/Training Program
DX: G93.0 Cerebral cysts (principal)
CPT/HCPCS: 70551

== ENCOUNTER 2024-01-18 15:31 | Outpatient (CLI) | payer OTHER, SELFPAY | END 2024-01-18 15:32 | disposition home or self-care (01) | LOC: ANHGOSHLAB 15:32 | PROVIDERS: PCP Student in an Organized Health Care Education/Training Program; Visit Provider Family Medicine | DX: N39.0 Urinary tract infection, site not specified (principal) | CPT/HCPCS: 87086 ==

== ENCOUNTER 2024-03-01 08:47 | Outpatient (CLI) | payer OTHER, SELFPAY ==
--- NOTE | ~2024-03-01 | CT_ITS ---
EXAMINATION: CT abdomen pelvis wo con DATE: 03/01/2024 09:06 INDICATION: Abdominal pain TECHNIQUE: Computed tomography (CT) of the abdomen and pelvis was performed without intravenous contr ast. Automated exposure control and iterative reconstruction technique were employed. The dose-length product was 499.99 mGy-cm. COMPARISON: 02/27/2021 FINDINGS: Lung bases are clear. Heart size is normal. No pericardial or pleural effusion. Liver, gallbladder, s pleen, pancreas and bilateral adrenal glands are normal. Bilateral nonobstructing nephrolithiasis wit h 2 right ureteral stone measuring up to 3 mm and 3 stones in the left kidney measuring up to 2 mm. N o ureteral stones or hydronephrosis. Bladder, anteverted uterus and right adnexa are unremarkable. 2. 2 cm left adnexal cyst/follicle. Small amount of likely physiologic free fluid in the cul-de-sac. [place] els including the appendix are normal. No pathologically enlarged abdominal or pelvic lymphadenopathy . Mild thoracolumbar dextrocurvature. IMPRESSION: 1. No acute intra-abdominal/pelvic process. 2. Bilateral nonobstructing nephrolithiasis. Reviewed, dictated and finalized at location B. 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
== END 2024-03-01 08:48 | disposition home or self-care (01) ==
LOC: GOSHIMG 08:50
PROVIDERS: PCP Urology; Visit Provider Nurse Practitioner Family
DX: R10.9 Unspecified abdominal pain (principal); R31.9 Hematuria, unspecified
CPT/HCPCS: 74176

== ENCOUNTER 2024-04-11 13:01 | Outpatient (CLI) | payer OTHER, SELFPAY ==
--- NOTE | ~2024-04-11 | US_ITS ---
US pelvic complete w TV Ordering provider: Stacey Khan APRN History: . R10.2 - Pelvic and perineal pain . Comparison: None. Technique: Transabdominal and endovaginal ultrasound of the pelvis (Doppler ultrasound interrogation techniques used as needed for this exam.) FINDINGS: CERVIX: Fluid is seen with the fluid in the lower uterine segment. UTERUS: Measures 7.4x 4x 2.8 cm in length which is within normal limits and is anteverted. No myomet rial masses. ENDOMETRIUM: Normal in thickness measuring 4 mm. No endometrial masses, cysts or fluid. CUL DE SAC: Trace of free fluid. RIGHT OVARY: Normal in size measuring 2.2x 1.6x 1.6 cm. Normal echotexture. Doppler vascular flow pre sent. LEFT OVARY: Normal in size measuring 2.8x 2.4x 2.2 cm. Normal echotexture. Doppler vascular flow pres ent. Follicle is seen measuring 1.6 x 1.4 x 1.3 cm. ADNEXA: Normal. No mass. IMPRESSION: Left ovarian follicle. Otherwise, normal pelvic ultrasound. Reviewed, dictated and finalized at location A. 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
== END 2024-04-11 13:02 | disposition home or self-care (01) ==
PROVIDERS: Visit Provider Nurse Practitioner Obstetrics & Gynecology
DX: N83.02 Follicular cyst of left ovary (principal); R10.2 Pelvic and perineal pain
CPT/HCPCS: 76830; 76856

== ENCOUNTER 2025-02-08 12:23 | Outpatient (CLI) | payer BC, SELFPAY ==
--- NOTE | ~2025-02-08 | XR_ITS ---
EXAMINATION: XR chest 2V, 02/08/2025 12:34 CDT HISTORY: covid-19 x 1 week, sob, cough, no surg COMPARISON: No comparisons available. Technique: 2 views obtained. Findings: The lungs are clear, no effusion. No pneumothorax. Heart is normal size. Mediastinal and hilar contours are within normal limits. Bony thorax no acute abnormality. Impression: No acute cardiopulmonary abnormality. Reviewed, dictated and finalized at location P. Impression: No acute cardiopulmonary abnormality.
== END 2025-02-08 12:24 | disposition home or self-care (01) ==
DX: U07.1 COVID-19 (principal)
CPT/HCPCS: 71046